=== PATIENT | female | born 2000 | race Caucasian/White ===

== ENCOUNTER 2020-10-21 01:46 | Emergency (ER) | payer OTHER ==
[~2020-10-21] VITALS: Ht 170.2 cm; Wt 57.2 kg
== END 2020-10-21 11:36 | disposition home or self-care (01) ==
LOC: ER 01:46 → EMR PED 01:46 → ER 02:22 → EMR PED 02:22
DX: K50.00 Crohn's disease of small intestine without complications (principal); K52.9 Noninfective gastroenteritis and colitis, unspecified; R10.31 Right lower quadrant pain

== ENCOUNTER 2022-11-19 07:25 | Emergency (ER) | payer OTHER ==
[~2022-11-19] VITALS: Ht 170.2 cm; Wt 59.0 kg
== END 2022-11-19 13:39 | disposition home or self-care (01) ==
LOC: ER 07:25
DX: K29.90 Gastroduodenitis, unspecified, without bleeding (principal); R10.9 Unspecified abdominal pain